=== PATIENT | female | born 1950 | race Caucasian/White ===

== ENCOUNTER 2023-08-10 17:34 | Emergency (ER) | payer MEDICARE, OTHER ==
[~2023-08-10] VITALS: Ht 167.6 cm; Wt 61.2 kg
[~2023-08-10 17:34] MED LIST: ESCI10TA PO; TRAZ-182 PO
[2023-08-10] MEDS ORDERED: LIDOCAINE 1% INJ 50 ML MDV IJ ONE ×2 (19:00→19:13)
[2023-08-10] MEDS ORDERED: KETOROLAC TROMETHAMINE INJ 30 MG/ML VIAL IM ONE (19:00)
[2023-08-10] MEDS ORDERED: KETOROLAC TROMETHAMINE INJ 30 MG/ML VIAL ONE (19:13)
[2023-08-10] MEDS ORDERED: AMOX-430 PO (19:44)
[2023-08-10] MEDS ORDERED: HYDR-3976 GT (19:44)
[2023-08-10] MEDS ORDERED: IBUP-1955 PO (19:44)
[2023-08-10 21:45] VITALS: BP 136/78; TEMP 98; O2SAT 100
== END 2023-08-10 21:45 | disposition home or self-care (01) ==
LOC: ER 17:49
DX: S61.312A Laceration without foreign body of right middle finger with damage to nail, initial encounter (principal); F32.A Depression, unspecified; W54.0XXA Bitten by dog, initial encounter; Y93.89 Activity, other specified; Y92.89 Other specified places as the place of occurrence of the external cause; Y99.8 Other external cause status
CPT/HCPCS: 99283; 29130; 96372; J3490; J1885